=== PATIENT | male | born 1995 | race Caucasian/White ===

== ENCOUNTER → 2021-05-11 16:54 | Outpatient (CLI) | payer OTHER, BC, SELFPAY ==
[2021-05-11 16:44] VITALS: BMI 23.4
--- NOTE | 2021-05-11 17:00 | RAD_ITS ---
STUDY: X-RAY - LEFT ANKLE REASON FOR EXAM: Male, 26 years old. Pain and swelling TECHNIQUE: 3 view(s) of the ankle. COMPARISON: None. FINDINGS: Normal visualized distal tibia and fibula. Normal medial and lateral malleoli. Normal tibiotalar articulation and ankle mortise. Normal visualized talus and calcaneus. The visualized subtalar, talonavicular, calcaneocuboid and tarsal articulations are normal. The soft tissue structures are unremarkable. RAD/Ankle min 3 Views IMPRESSION: Normal x-ray examination of the ankle. Electronically Signed: Henrry Dodge MD at 17:15 EDT , Service support ,
== END ==
PROVIDERS: Referring Provider Physician Assistant Surgical; Visit Provider Physician Assistant Surgical
DX: S93.402A Sprain of unspecified ligament of left ankle, initial encounter (principal)
CPT/HCPCS: 73610

== ENCOUNTER → 2021-06-24 | Outpatient (CLI) | payer BC, SELFPAY | END | disposition home or self-care (01) | LOC: LABSPEC 17:01 | PROVIDERS: Referring Provider Physician Assistant Surgical; Visit Provider Physician Assistant Surgical | DX: R10.9 Unspecified abdominal pain (principal) | CPT/HCPCS: 87635; U0003 ==